=== PATIENT | male | born 1940 | race Caucasian/White ===

== ENCOUNTER 2018-11-06 09:44 | Emergency (ER) | payer MEDICARE, OTHER ==
--- NOTE | 2018-11-06 10:21 | EDM.PDOC ---
ED HPI GENERAL MEDICAL PROBLEM - General Chief Complaint: Eye Problems Stated Complaint: BLEEDING IN RT EYE Time Seen by Provider: 11/06/18 10:21 Source of Information: Reports: Patient History Limitations: Reports: No Limitations - History of Present Illness INITIAL COMMENTS - FREE TEXT/NARRATIVE: pt noticed mid-day yesterday that there was some hemmorage in the rt eye. He is on asa but no other thinners. Onset: Other ( started yesterday. ) Duration: Hour(s): Location: Reports: Face, Other (hemmorage in the rt eye. ) Associated Symptoms: Reports: No Other Symptoms - Related Data Allergies Allergy/AdvReac Type Severity Reaction Status Date / Time No Known Allergies Allergy Verified 11/06/18 09:59 Home Meds: Home Meds Aspirin 1 tab PO DAILY 11/06/18 [History] Calcium Carbonate [Calcium] 1 tab PO DAILY 11/06/18 [History] Loratadine [Allergy] 1 tab PO DAILY 11/06/18 [History] Omeprazole 1 cap PO DAILY 11/06/18 [History] buPROPion [Wellbutrin] 1 tab PO DAILY 11/06/18 [History] traZODone 2.5 tab PO DAILY 11/06/18 [History] Past Medical History HEENT History: Reports: Allergic Rhinitis Gastrointestinal History: Reports: GERD Genitourinary History: Reports: Prostate Disorder Psychiatric History: Reports: Depression Oncologic (Cancer) History: Reports: Prostate Dermatologic History: Reports: Psoriasis - Past Surgical History HEENT Surgical History: Reports: Tonsillectomy GI Surgical History: Reports: Appendectomy, Cholecystectomy Male Surgical History: Reports: Prostatectomy Social & Family History - Family History Family Medical History: Noncontributory - Tobacco Use Smoking Status *Q: Never Smoker Second Hand Smoke Exposure: No - Caffeine Use Caffeine Use: Reports: Coffee - Recreational Drug Use Recreational Drug Use: No ED ROS GENERAL - Review of Systems Review Of Systems: See Below Constitutional: Reports: No Symptoms HEENT: Reports: Other ( conjubtivial hemmorage) Respiratory: Reports: No Symptoms Cardiovascular: Reports: No Symptoms Endocrine: Reports: No Symptoms GI/Abdominal: Reports: No Symptoms : Reports: No Symptoms Musculoskeletal: Reports: No Symptoms Neurological: Reports: No Symptoms ED EXAM GENERAL W FULL EYE - Physical Exam Exam: See Below Text/Narrative:: pt notied yesterday that he had some hemmorage in the rt eye. His vision is good. Exam Limited By: No Limitations General Appearance: Alert, Anxious, Mild Distress, Other (pupils are equal and reactive. The findi on the rt revealed no hemmorage. He has hemmorage on the inner aspect of the rt eye. he has normal vision. He has no pain. ) Ears: Normal TMs Throat/Mouth: Normal Inspection Head: Atraumatic Neck: Normal Inspection Course - Vital Signs Last Recorded V/S: Last Vital Signs Temp Pulse 66 11/06/18 10:05 Resp 14 11/06/18 10:05 BP 124/68 11/06/18 10:05 Pulse Ox 95 11/06/18 10:05 Departure - Departure Time of Disposition: 10:19 Disposition: Home, Self-Care 01 Condition: Fair Clinical Impression: Conjunctival hemorrhage - Discharge Information Referrals: PCP,None [Primary Care Provider] - Forms: ED Department Discharge Care Plan Goals: liquid tears to lube the eye. rtc if any visual changes.
== END 2018-11-06 10:42 | disposition home or self-care (01) ==
LOC: JP.ED 09:44
DX: H11.31 Conjunctival hemorrhage, right eye (principal); K21.9 Gastro-esophageal reflux disease without esophagitis; F32.9 Major depressive disorder, single episode, unspecified; Z79.82 Long term (current) use of aspirin; Z79.899 Other long term (current) drug therapy; Z98.890 Other specified postprocedural states; Z90.49 Acquired absence of other specified parts of digestive tract
CPT/HCPCS: 99282